=== PATIENT | male | born 1990 | race African-American/Black ===

== ENCOUNTER 2017-01-20 22:40 | Emergency (ER) | payer MEDICAID ==
[2017-01-20 22:48] VITALS: BP 80/46; PULSE 57; RESP 18; TEMP 97.9; O2SAT 96
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
== END 2017-01-21 | disposition home or self-care (01) ==
DX: S62.327A Displaced fracture of shaft of fifth metacarpal bone, left hand, initial encounter for closed fracture (principal); W22.8XXA Striking against or struck by other objects, initial encounter; Y92.009 Unspecified place in unspecified non-institutional (private) residence as the place of occurrence of the external cause

== ENCOUNTER 2017-03-14 10:10 | Emergency (ER) | payer MEDICAID ==
[2017-03-14 10:20] VITALS: BP 129/87; PULSE 72; RESP 16; TEMP 98.1; O2SAT 97
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
== END 2017-03-14 11:08 | disposition home or self-care (01) ==
DX: S61.452A Open bite of left hand, initial encounter (principal); W50.3XXA Accidental bite by another person, initial encounter

== ENCOUNTER 2017-09-24 16:33 | Emergency (ER) | payer MEDICAID ==
--- NOTE | 2017-09-24 16:35 | EDPHY ---
H & P Time Seen by Provider: 09/24/17 16:35 HPI/ROS: CHIEF COMPLAINT: Lower abdominal pain HISTORY OF PRESENT ILLNESS: The patient is a 27 y/o male complaining of worsening lower abdominal pain, onset several days ago. The pain initially began in his right lower abdomen and is now radiating to his left lower abdomen and right upper abdomen. Today he became nauseous but has not vomited. He was able to eat lunch today including two burritos. Today he also noticed that he has had more bowel movements than normal. Due to the worsening pain today, he decided to present to [place] urgent care, who sent him to this emergency department to rule out an appendectomy. Admits to using marijuana products daily. Denies chest pain, shortness of breath, urinary complaints, fever, paresthesias, numbness. REVIEW OF SYSTEMS: Aside from elements discussed in the HPI, a comprehensive 10-point review of systems was reviewed and is negative. Past Medical/Surgical History: PTSD Social History: Lives in [place], friend at bedside, employed, uses marijuana products daily Smoking Status: Current every day smoker Physical Exam: General Appearance: Alert, pleasant Eyes: Pupils equal and round, no conjunctival pallor or injection ENT, Mouth: Mucous membranes moist Neck: Normal inspection Respiratory: Lungs are clear to auscultation Cardiovascular: Regular rate and rhythm Gastrointestinal: Right upper quadrant tenderness. Abdomen is soft. Neurological: A&O, nonfocal Skin: Warm and dry, no rash Extremities: Nontender, no pedal edema Psychiatric: Mood and affect normal Constitutional: Initial Vital Signs Temperature (C) 37 C 09/24/17 16:39 Heart Rate 96 09/24/17 16:39 Respiratory Rate 16 09/24/17 16:39 Blood Pressure 130/76 H 09/24/17 16:39 O2 Sat (%) 99 09/24/17 16:39 O2 Delivery Mode Room Air Allergies/Adverse Reactions: lamotrigine [From Lamictal] Allergy (Severe, Verified 09/24/17 16:39) andrea-angela syndrome Home Medications: Medication Instructions Recorded Herbals/Supplements -Info Only 1 ea PO DAILY 09/24/17 Medical Decision Making - Diagnostics Imaging Results: Abdomen CT 09/24/17 16:35 Impression: 1. There is a nonspecific inflammatory process along the caudal right paracolic gutter just posterior to the cecum, and seen in association with a tiny sentinel bleed along the caudal cecal pole. This could represent an isolated hemorrhagic diverticulum, or perhaps be related to focal angiodysplasia ( although is otherwise nonspecific, and appears to involve more the cecal serosal surface than the mucosal surface). Consider a surgical opinion. 2. Mild right lower quadrant mesenteric adenitis. 3. Normal CT appearance of the appendix. Findings were discussed with NORMA NEGRON MD at 18:07, on 09/24/2017. Imaging: Discussed imaging studies w/ square dance caller Radiologist, I viewed and interpreted images myself ED Course/Re-evaluation: The patient is a 27 y/o male presenting with right upper quadrant tenderness to palpation. He was sent here to rule out an appendicitis. Labs and AP CT ordered. 0.5mg IV Ativan administered as patient is anxious. 1810: Spoke with Dr. Bang, radiologist, he reports there is no appendicitis but there is an abnormal finding in the right lower quadrant posterior to the cecum. Patient does not have a fever, leukocytosis or recent trauma. 1816: Consulted with Dr. Ji, general surgeon, regarding this patient. Reviewed CT scan together. Patient will need a colonoscopy to further evaluate the abnormal findings. 1827: Reassessed patient and discussed laboratory and imaging findings. I have advised him to follow up with a delinquent tax collector regarding the colonoscopy. Return precautions provided; patient is comfortable with this plan. 1842: Dr. Bell, general surgeon, in ED reviewing CT scan. Will see pt. 1850: Dr. Bell has consulted on this patient and will see the patient during an outpatient visit on Wednesday, 3 days from now. Differential Diagnosis: Differential diagnosis includes though it is not limited to appendicitis, cholecystitis, diverticulitis, pyelonephritis, bowel perforation, small bowel obstruction. - Data Points Laboratory Results: Laboratory Results 09/24/17 17:00 09/24/17 17:00 Medications Given: Discontinued Medications Lorazepam (Ativan Injection) 0.5 mg IVP EDNOW ONE Stop: 09/24/17 17:14 Last Admin: 09/24/17 17:21 Dose: 0.5 mg Departure - Departure Disposition: Home, Routine, Self-Care Clinical Impression: Abdominal pain Qualifiers: Abdominal location: right upper quadrant Qualified Code(s): R10.11 - Right upper quadrant pain Condition: Good Instructions: Acute Abdominal Pain (ED), Abdominal Pain (ED) Additional Instructions: Follow with Dr. Bell, general surgeon, on Wednesday. You will need a colonoscopy to further investigate the abdominal CT findings. You can follow up with a delinquent tax collector regarding this. You have been referred to Dr. Morillo. Return to the Emergency Department for intractable pain, fever or vomiting. Referrals: Seth Morillo MD [Medical Doctor] - As per Instructions SAUMYA JURADO [Primary Care Provider] - As per Instructions Ryan Bell MD [Medical Doctor] - As per Instructions Report Scribed for: Norma Negron Report Scribed by: Ilsa Fischer Date of Report: 09/24/17 Time of Report: 16:35 Physician Review and Approval Statement: 09/24/17 16:35 Portions of this note were transcribed by a medical psychotherapist. I personally performed a history, physical exam, medical decision making, and confirmed accuracy of information the transcribed note.
[2017-09-24 16:41] VITALS: RESP 16; TEMP 98.6; O2SAT 99
[2017-09-24] MEDS ORDERED: LORazepam 2 MG/ML INJ IVP ONE (17:13)
[2017-09-24 17:25] LABS: PLATELET COUNT 215 10^3/uL (150-400)
[2017-09-24] MEDS ORDERED: IOPAMIDOL (ISOVUE-300) 100 ML BTL ONE (17:25)
[2017-09-24 19:08] VITALS: BP 133/92; PULSE 89
== END 2017-09-24 19:08 | disposition home or self-care (01) ==
DX: R10.11 Right upper quadrant pain (principal); F17.200 Nicotine dependence, unspecified, uncomplicated
CPT/HCPCS: 82947-QW; 96374; J2060; Q9967

== ENCOUNTER 2018-05-13 21:07 | Emergency (ER) | payer MEDICAID ==
--- NOTE | 2018-05-13 21:51 | EDPHY ---
H & P Stated Complaint: sciatic nerve pain in lowe back Time Seen by Provider: 05/13/18 21:51 - Personal History Current Tetanus/Diphtheria Vaccine: Yes Current Tetanus Diphtheria and Acellular Pertussis (TDAP): Yes - Medical/Surgical History Hx Asthma: No Hx Chronic Respiratory Disease: No Hx Diabetes: No Hx Cardiac Disease: No Hx Renal Disease: No Hx Cirrhosis: No Hx Alcoholism: No Hx HIV/AIDS: No Hx Splenectomy or Spleen Trauma: No Other PMH: DENIES - Social History Smoking Status: Current every day smoker Constitutional: Initial Vital Signs Temperature (C) 36.8 C 05/13/18 21:16 Heart Rate 78 05/13/18 21:16 Respiratory Rate 16 05/13/18 21:16 Blood Pressure 113/97 H 05/13/18 21:16 O2 Sat (%) 94 05/13/18 21:16 O2 Delivery Mode Room Air Allergies/Adverse Reactions: lamotrigine [From Lamictal] Allergy (Severe, Verified 05/13/18 21:19) andrea-angela syndrome Home Medications: Medication Instructions Recorded Herbals/Supplements -Info Only 1 ea PO DAILY 09/24/17 Gabapentin 05/13/18 Hydrocodone/APAP 5/325 [[place] 1 - 2 each PO Q4-6PRN PRN #20 tab 05/13/18 5/325] methylPREDNISolone [Medrol Dose 1 each PO AD #1 ea 05/13/18 Roe] Medical Decision Making ED Course/Re-evaluation: CHIEF COMPLAINT: Back pain HISTORY OF PRESENT ILLNESS: The patient is a 27 y/o male complaining of low back pain onset yesterday while rollerblading. He says, "I probably got a little too aggressive. Took one lap too many." While rollerblading he noticed some low back soreness that "progressed to shocking pain." His pain is located at the "base" of his spine and does not radiate. He cannot reproduce pain with palpation, only with movement. He has been taking gabapentin for pain with some improvement. He reports this is the second time he has experienced this type of pain. No leg weakness, paresthesias, incontinence, or fever. REVIEW OF SYSTEMS: A comprehensive 10 system review of systems is otherwise negative aside from elements mentioned in the history of present illness and medical decision making. PHYSICAL EXAM: HR, BP, O2 Sat, RR. Temp noted General Appearance: Alert, well hydrated, appropriate, and non-toxic appearing. Head: Atraumatic without scalp tenderness or obvious injury Eyes: Pupils equal, round, reactive to light and accommodation, EOMI, no trauma , no injection. Nose: Atraumatic, no rhinorrhea, clear. Throat: Mucus membranes moist. Neck: Supple, nontender, no lymphadenopathy. Respiratory: No retractions, no distress, no wheezes, and no accessory muscle use. Lungs are clear to auscultation bilaterally. Cardiovascular: Regular rate and rhythm, no murmurs, rubs, or gallops. Good capillary refill all extremities. Gastrointestinal: Abdomen is soft, nontender, non-distended, no masses, no rebound, no guarding, no peritoneal signs. Musculoskeletal: Normal active ROM of all extremities, atraumatic. Neurological: Alert, appropriate, and interactive. The patient has non-focal cranial nerves, motor, sensory, and cerebellar exam. Skin: No rashes, good turgor, no nodules on palpation. Past medical history: Back pain Past surgical history: Noncontributory Family history: Noncontributory Social history: Smoker. Fiance at bedside. Lives in [place]. Employed. DIFFERENTIAL DIAGNOSIS: The differential diagnosis for the patient's back pain included but was not limited to musculoskeletal pain, epidural abscess, herniated disk, spinal fracture, and intra-abdominal causes including urinary system. MEDICAL DECISION MAKING: This is a 27 y/o male who presents with lumbar back pain that began while rollerblading yesterday. He is neurovascularly intact without signs of acute cauda equina syndrome. No indication for imaging at this time. Plan for symptomatic treatment with ibuprofen and scripts for C[place]en[place] and Medrol dose pack. Referral to neurosurgery provided as needed. Return precautions discussed. Departure - Departure Disposition: Home, Routine, Self-Care Clinical Impression: Back pain Qualifiers: Back pain location: low back pain Chronicity: acute Back pain laterality: unspecified Sciatica presence: without sciatica Qualified Code(s): M54.5 - Low back pain Condition: Good Instructions: Oxycodone/Acetaminophen (By mouth), Methylprednisolone (By mouth) , Back Pain (ED) Additional Instructions: 1. Take Medrol dose pack as prescribed. Be sure to complete the entire prescription. 2. Take 800mg ibuprofen every 8 hours for pain and inflammation over the next few days. 3. Okay to continue your Gabapentin as prescribed for pain. 4. Use C[place] as prescribed when needed for severe pain. This medication can make you drowsy and constipated. Do not use prior to driving or operating machinery. 5. Follow up with back specialist for unimproved symptoms over the next week. 6. Return to the ED for weakness or numbness in your legs, incontinence, or other worsening of condition. Referrals: Valentín Salinas MD [Medical Doctor] - As per Instructions Prescriptions: Hydrocodone/APAP 5/325 [[place] 5/325] 1 - 2 each PO Q4-6PRN PRN #20 tab PRN Reason: Pain, Moderate methylPREDNISolone [Medrol Dose Roe] 1 each PO AD #1 ea Report Scribed for: Seymour Nguyen Report Scribed by: Gayatri Gurrola Date of Report: 05/13/18 Time of Report: 21:58
[2018-05-13] MEDS ORDERED: predniSONE 20 MG TAB PO ONE (21:59)
[2018-05-13] MEDS ORDERED: OXYCODONE/APAP 5/325MG PREPACK#4 BTL TAKEHOME ONE (21:59)
[2018-05-13 22:27] VITALS: BP 112/71
== END 2018-05-13 22:25 | disposition home or self-care (01) ==
DX: M54.5 Low back pain (principal)
CPT/HCPCS: J7512

== ENCOUNTER 2018-06-23 11:46 | Emergency (ER) | payer MEDICAID ==
[2018-06-23 11:55] VITALS: BP 145/93
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
[2018-06-23] MEDS ORDERED: SKIN ADHESIVE (DERMABOND) 1 EACH TP ONE (12:24)
== END 2018-06-23 12:41 ==
PROC: 0HQ1XZZ Repair Face Skin, External Approach (ICD-10-PCS; principal; 2018-06-23)
DX: S01.81XA Laceration without foreign body of other part of head, initial encounter (principal); Y04.8XXA Assault by other bodily force, initial encounter; M25.511 Pain in right shoulder; M25.512 Pain in left shoulder; F17.200 Nicotine dependence, unspecified, uncomplicated